=== PATIENT | female | born 1935 | race Caucasian/White ===

== ENCOUNTER 2019-05-23 12:38 | Observation (INO) ==
--- NOTE | 2019-05-23 13:24 | EKG Report ---
Test Performed on : 05/23/2019 12:53:27 PM Test Reason : cp Blood Pressure : / mmHG Vent. Rate : 065 BPM Atrial Rate : 065 BPM P-R Int : 180 ms QRS Dur : 090 ms QT Int : 468 ms P-R-T Axes : 021 002 061 degrees QTc Int : 486 ms Normal sinus rhythm. Low voltage QRS Borderline ECG When compared with ECG of 12-JUN-2018 15:37, Non-specific change in ST segment in Inferior leads Unconfirmed Result
--- NOTE | 2019-05-23 14:24 | PROVIDER DOCUMENTATION ---
HPI-Chest Pain - General Chief Complaint: Chest Pain Stated Complaint: SOB, CP Time Seen by Provider: 05/23/19 13:45 Allergies/Adverse Reactions: Patient Allergies Allergy/AdvReac Type Severity Reaction Status Date / Time aspirin Allergy NAUSEA/VOMI Verified 05/23/19 13:46 TING codeine Allergy RASH Verified 05/23/19 13:46 Sulfa (Sulfonamide Allergy RASH Verified 05/23/19 13:46 Antibiotics) Home Medications: Home Medication List Medication Instructions Recorded Confirmed Last Taken Type Donepezil [Aricept] 10 mg PO DAILY 01/10/16 05/23/19 05/22/19 History Escitalopram [Lexapro] 20 mg PO DAILY 01/10/16 05/23/19 05/22/19 History PRAVAstatin [Pravachol] 40 mg PO DAILY 01/10/16 04/24/18 04/23/18 History 40 mg Pantoprazole Sodium 20 mg PO DAILY 12/31/17 04/24/18 04/23/18 History 20 mg Acetaminophen [Tylenol] 650 mg PO Q8HR PRN 03/13/18 04/24/18 04/23/18 History 650 mg LISINOpril [Prinivil] 2.5 mg PO DAILY 03/13/18 04/24/18 04/23/18 History 2.5 mg Multivitamin [Multiple Vitamins] 1 each PO DAILY 03/13/18 04/24/18 04/23/18 History 1 pill Cholecalciferol (Vitamin D3) 800 unit PO DAILY #90 tablet 05/08/18 Unknown Rx [Vitamin D3] Ergocalciferol (Vitamin D2) 50,000 unit PO Q7D #12 capsule 05/08/18 Unknown Rx [Vitamin D] Iron Carbonyl/Vit C/Vit B12/FA 1 each PO DAILY #30 tablet 05/08/18 Unknown Rx [Icar-C Plus] CefDINIR [Omnicef] 300 mg PO BID #10 cap 06/12/18 Unknown Rx - History of Present Illness-CP Nature of Presenting Problem: patient presented with chest pain started around 11:30AM, substernal area, spastic pain without radiation, no shortness of breath. patient stated pain was subsided now, comfortable, no fever or cough noticed lately. Location: reports: substernal Chest Pain Radiation: reports: no radiation Quality of Pain: reports: burning, sharp Severity in ED: moderate Onset/Duration: gradual, this morning Timing: gone now Context/Activities at Onset: reports: none Modifying Factors: improves with: nothing Associated Symptoms: denies: abdominal pain, back pain, diaphoresis, fatigue, fever/chills, syncope Similar Symptoms Previously?: No Review of Systems - Adult - REVIEW OF SYSTEMS - ADULT Constitutional: denies: fever Eyes: reports: no symptoms reported Ears, Nose, Mouth & Throat: reports: no symptoms reported Cardiovascular: reports: chest pain Respiratory: reports: no symptoms reported Gastrointestinal: reports: no symptoms reported Genitourinary: reports: no symptoms reported Musculoskeletal: reports: no symptoms reported Integumentary: reports: no symptoms reported Neurological: reports: no symptoms reported Psychiatric: reports: no symptoms reported Endocrine: reports: no symptoms reported Hematologic/Lymphatic: reports: no symptoms reported Allergic/Immunologic: reports: no symptoms reported Past History - Adult - PAST MEDICAL HISTORY-ADULT Review of Records: reports: Nursing Assessment Review Major Childhood Illnesses: reports: denies history Cardiovascular: reports: HTN, hyperlipidemia Respiratory: reports: denies history Gastrointestinal: reports: denies history Obstetrical/Gynecological: reports: denies history Genitourinary: reports: denies history Musculoskeletal: reports: denies history Neurological: reports: CVA, dementia, TIA Psychiatric: reports: denies history Endocrine/Immune: reports: lupus, RA Other Conditions: reports: denies history, other cancer (melanoma), other (lupus) - PRIOR SURGERIES/PROCEDURES Surgical/Procedure History: reports: cholecystectomy, BTL, other (melanoma removed left eye, graft) - IMMUNIZATION STATUS Childhood Immunizations: UTD, See Nurse Assessment Flu Vaccine: See Nurse Assessment - FAMILY HISTORY Family History: reviewed, not pertinent Physical Exam-General - PHYSICAL EXAM-ADULT Initial Vital Signs Reviewed: Yes - CONSTITUTIONAL General Appearance: alert, no apparent distress - EYES Eyes: pink conjunctivae, other (hazy cornea of the left eye) - HEAD, EARS, NOSE, MOUTH & THROAT HENMT: normocephalic/atraumatic, normal ENT inspection - NECK Neck: non-tender, supple - RESPIRATORY Respiratory: chest non-tender, lungs clear - CARDIOVASCULAR Cardiovascular: normal peripheral pulses, no edema, no JVD - GASTROINTESTINAL (ABDOMEN) Abdominal Exam: normal bowel sounds, soft - LYMPHATIC Lymphatic: no adenopathy - MUSCULOSKELETAL Back Exam: normal inspection, no CVA tenderness, no vertebral tenderness Extremity: normal range of motion - SKIN Integumentary: normal color, normal turgor, warm/dry - NEUROLOGIC Neurologic: grossly normal, no motor/sensory deficits - PSYCHIATRIC Psych/Mental Status: normal mood/affect - HEART Score HEART Score: History: Slightly Suspicious HEART Score: ECG: Non-Specific Repolarization Disturbance/LBBB/PM HEART Score: Age: > or = 65 Years HEART Score: Risk Factors for Atherosclerotic Disease: 1 or 2 Risk Factors HEART Score: Troponin: < or = Normal Limit Total HEART Score:: 4 Progress - PLAN OF CARE/RESULTS Progress/Plan/Lab Results: Vital Signs - 8 hr 05/23/19 13:22 05/23/19 13:33 05/23/19 14:30 Temperature 97.7 F 98.1 F Pulse Rate 65 66 60 Respiratory Rate 18 18 18 Blood Pressure 128/93 128/93 128/93 O2 Sat by Pulse Oximetry 100 100 100 05/23/19 14:32 05/23/19 15:02 05/23/19 15:32 Temperature Pulse Rate 67 65 62 Respiratory Rate 14 22 17 Blood Pressure 146/67 136/64 140/65 O2 Sat by Pulse Oximetry 100 100 99 05/23/19 15:34 Temperature Pulse Rate 64 Respiratory Rate 15 Blood Pressure 140/65 O2 Sat by Pulse Oximetry 100 Laboratory Results - last 24 hr 05/23/19 05/23/19 05/23/19 14:06 14:06 14:06 WBC 8.81 RBC 4.70 Hgb 13.5 Hct 41.1 MCV 87.4 MCH 28.7 MCHC 32.8 L RDW Std Deviation 13.7 Plt Count 286 MPV 9.7 Immature Gran % (Auto) 0.3 Neut % (Auto) 76.9 H Lymph % (Auto) 16.2 L [place] % (Auto) 5.1 Eos % (Auto) 1.2 Baso % (Auto) 0.3 Immature Gran # (Auto) 0.03 Neut # (Auto) 6.76 H Lymph # (Auto) 1.43 [place] # (Auto) 0.45 Eos # (Auto) 0.11 Baso # (Auto) 0.03 Sodium 140 Potassium 4.7 Chloride 105 Carbon Dioxide 24 L Anion Gap 11 BUN 25 H Creatinine 1.4 H Estimated GFR/1.73 m2 36 BUN/Creatinine Ratio 18 Glucose 106 H Calculated Osmolality 284 Calcium 9.1 Total Bilirubin 0.41 AST 29 ALT 9 L Alkaline Phosphatase 75 Creatine Kinase 16 L Troponin T High Sens 9 Total Protein 6.1 L Albumin 3.8 Globulin 2.3 Albumin/Globulin Ratio 1.7 Amylase 106 Lipase 56 05/23/19 16:36 WBC RBC Hgb Hct MCV MCH MCHC RDW Std Deviation Plt Count MPV Immature Gran % (Auto) Neut % (Auto) Lymph % (Auto) [place] % (Auto) Eos % (Auto) Baso % (Auto) Immature Gran # (Auto) Neut # (Auto) Lymph # (Auto) [place] # (Auto) Eos # (Auto) Baso # (Auto) Sodium Potassium Chloride Carbon Dioxide Anion Gap BUN Creatinine Estimated GFR/1.73 m2 BUN/Creatinine Ratio Glucose Calculated Osmolality Calcium Total Bilirubin AST ALT Alkaline Phosphatase Creatine Kinase Troponin T High Sens 11 Total Protein Albumin Globulin Albumin/Globulin Ratio Amylase Lipase Orders Category Date Time Status Saline Loc DIRECTED Care 05/23/19 14:00 Active NPO Diet 05/23/19 14:00 Active CHEST-1 VIEW [RAD] Stat Exams 05/23/19 15:[address] HEAD W/O CONTRAST [CT] Stat Exams 05/23/19 17:30 Ordered AMYLASE [CHEM] Stat Lab 05/23/19 14:06 Completed CBC WITH ELECTRONIC DIFF [HEME] Stat Lab 05/23/19 14:06 Completed CK PROFILE [SP CHEM] Stat Lab 05/23/19 14:06 Completed COMPREHENSIVE METABOLIC PANEL [CHEM] Stat Lab 05/23/19 14:06 Completed LIPASE [CHEM] Stat Lab 05/23/19 14:06 Completed TROPONIN T HIGH SENSITIVITY Stat Lab 05/23/19 14:06 Completed TROPONIN T HIGH SENSITIVITY Stat Lab 05/23/19 16:36 Completed URINALYSIS W/POSS RFLX CULT [URINALYSIS] Stat Lab 05/23/19 17:33 Uncollected 0.9% Sodium Chloride Inj [Ns] 1,000 ml Med 05/23/19 17:31 Active IV 999 mls/hr EKG [EKG] Stat Ther 05/23/19 13:12 Draft Result Diagrams: 05/23/19 14:06 05/23/19 14:06 - REASSESSMENT Reassessment #1 Time Reassessed: 17:25 Status: improving (family concerned about the chest pain might happen again and reported seizure activity after the chest pain) - EKG 1 Time of EKG reading by physician:: 12:53 EKG Read and Signed by:: Ginger Christiansen EKG Interpretation (*Must complete 3 of following elements*): Normal (borderline) Rate: 65 Rhythm: nsr [place]: normal QRS: other (low voltage qrs) [place] Interval: normal ST Wave: normal - CONSULTS/PCP/HOSPITALIST Notification #1 *Consult/PCP/Hospitalist*: Dr Smith Time Discussed: 17:43 Consult Disposition: Will see in ED Departure - Departure Date of Disposition Decision: 05/23/19 Time of Disposition Decision: 17:42 DIAGNOSIS: Chest pain Qualifiers: Chest pain type: unspecified Qualified Code(s): R07.9 - Chest pain, unspecified Disposition: ADMITTED INPATIENT 09 Certified Medical Emergency: Emergent Condition: Good Referrals and Follow-Ups: Kimi Suarez MD [Primary Care Provider] - - Critical Care Note This patient required my direct & personal management of CC.: No Attestation - Physician/ ANDRE Attestation Patient care was provided by Advanced Practice Provider:: No The physician spent face to face time with patient:: Yes Advanced Practice Provider documentation review:: Supervising physician onsite and consulted in the evaluation and care of this patient. The physician did have a face to face encounter with the patient.
[2019-05-23 14:31] LABS: BASO# 0.03 X1000 (0.0-0.2); BASO% 0.3 % (0.0-0.8); EOS# 0.11 X1000 (0.0-0.7); EOS% 1.2 % (0.0-10.0); HEMATOCRIT 41.1 % (37.0-47.0); HEMOGLOBIN 13.5 g/dL (12.0-16.0); IMM GRAN# 0.03 X1000 (0.0-0.04); IMM GRAN% 0.3 % (0.0-0.5); LYMPH# 1.43 X1000 (1.2-3.4); LYMPH% 16.2 % (20.5-51.1); MCH 28.7 PG (27-31); MCHC 32.8 g/dL (33-37); MCV 87.4 FL (81-99); MONO# 0.45 X1000 (0.11-0.59); MONO% 5.1 % (1.7-9.3); MPV 9.7 FL (7.4-10.4); NEUT# 6.76 X1000 (1.4-6.5); NEUT% 76.9 % (42.2-75.2); PLT 286 X1000 (130-400); RDW 13.7 % (11.5-14.5); WBC 8.81 X1000 (4.8-10.8)
[2019-05-23 15:14] LABS: ALB/GLOB RATIO 1.7; ALBUMIN 3.8 g/dL (3.5-5.0); CALCIUM 9.1 mg/dL (8.8-10.2); CREATININE 1.4 mg/dL (0.5-0.9); POTASSIUM 4.7 mmol/L (3.5-5.1); TOTAL BILIRUBIN 0.41 mg/dL (0.20-1.00); TOTAL PROTEIN 6.1 g/dL (6.3-8.3)
--- NOTE | 2019-05-23 15:56 | Diag Imaging Result Doc PS360 ---
EXAM: CHEST-1 VIEW 05/23/2019 HISTORY: chest pain TECHNIQUE: Erect AP portable at 1537 COMMENT: There is some retrocardiac opacity in the left lower lobe which was not apparently present on 06/12/2018. IMPRESSION: Atelectasis versus pneumonia left lower lobe. Electronically signed by Beto Doss 05/23/2019 3:54 PM
[2019-05-23] MEDS ORDERED: NS 1,000 ML IV ONE (17:31)
--- NOTE | 2019-05-23 18:05 | Diag Imaging Result Doc PS360 ---
EXAM: CT HEAD W/O CONTRAST 05/23/2019 HISTORY: seizure like activity TECHNIQUE: This exam was performed using automated exposure control, adjustment of mA or kV according to patient size, and/or use of iterative reconstruction technique. COMMENT: There are calcifications present in the internal carotid arteries bilaterally. There is patchy abnormal lucencies in the white matter both hemispheres. There is a small lacunar lucency in the anterior limb of the internal capsule on the right. The appearance of the brain has not changed significantly since the previous examination of 06/12/2018. There is no evidence of bleed or abnormal extra-axial fluid collection. There is mucosal thickening in the right maxillary sinus and right sphenoid sinus. The calvarium is intact. IMPRESSION: Chronic ischemic microvascular white matter disease. Chronic sinus changes. Electronically signed by Beto Doss 05/23/2019 6:02 PM
[2019-05-23 18:15] LABS: URINE SOURCE CLEAN CATCH
[2019-05-23 18:20] LABS: BILIRUBIN URINE NEGATIVE (NEGATIVE); BLOOD URINE NEGATIVE (NEGATIVE); COLOR YELLOW; GLUCOSE URINE NEGATIVE (NEGATIVE); KETONE URINE NEGATIVE (NEGATIVE); LEUKOCYTES URINE NEGATIVE (NEGATIVE); NITRITE URINE NEGATIVE (NEGATIVE); PROTEIN URINE NEGATIVE (NEGATIVE); SP GRAVITY URINE 1.018; TURBIDITY URINE CLEAR (CLEAR); UROBILINOGEN URINE NORMAL (NORMAL)
[2019-05-23 18:31] LABS: UR EPITHELIAL CELLS <10 /HPF (<10); URINE BACTERIA NEGATIVE /HPF; URINE RBC <10 /HPF (<10); URINE WBC <10 /HPF (<10)
[2019-05-23 18:36] LABS: URINE CASTS NONE SEEN; URINE CRYSTALS NONE SEEN; URINE YEAST NONE SEEN
[2019-05-23] MEDS ORDERED: TYLENOL PO PRN (18:58)
[2019-05-23] MEDS ORDERED: NITROGLYCERIN SL PRN (19:09)
[2019-05-23] MEDS ORDERED: MORPHINE IV PRN (19:10)
--- NOTE | 2019-05-23 23:22 | HISTORY AND PHYSICAL ---
CHIEF COMPLAINT: Chest pain and shortness of breath. PRESENT ILLNESS: This is one of several [facility] admissions for this 83-year-old, white female patient of Dr. Suarez who developed some substernal chest pain this afternoon and a syncopal episode with possible seizure activity for a few minutes at home and loss of consciousness. She presented to the emergency room where she was evaluated for chest pain. CT scan of her head was done revealing some chronic microvascular changes, unchanged from 1 year ago. After studies including 2 troponin levels were done and were normal, intention was to send her home, but she had a recurrent episode of chest pain. There was no change in blood pressure, heart rate or respirations. The family was insistent on her staying primarily because of the seizure-like episode but also because of chest pain. There is no history of heart disease. She has not seen a trolley cleaner. She is admitted to rule out cardiovascular event. PAST MEDICAL HISTORY: Surgeries include cholecystectomy and hysterectomy. She has had several surgeries for melanoma on her left eyelid. Her dermatology surgeon in [place] has retired, and she will need to find a new physician to manage her skin cancer. PRESENT MEDICATIONS: Tylenol 650 mg q.8 hours p.r.n., cefdinir 300 mg b.i.d., vitamin D3 400 units 1 daily, donepezil 10 mg 1 daily, escitalopram 20 mg 1 daily, iron with vitamin C 1 daily, lisinopril 5 mg 1 daily, multivitamin once daily, pantoprazole 20 mg 1 daily, and pravastatin 40 mg 1 daily. ALLERGIES: Aspirin, codeine and sulfa. FAMILY HISTORY: Unremarkable. No history of coronary artery disease, heart disease, or cancer. SOCIAL HISTORY: Lives alone. There is no history of smoking or alcohol usage. PHYSICAL EXAMINATION: VITAL SIGNS: Temperature 98.1 degrees, heart rate 64, respirations 15, blood pressure 140/65, O2 saturation on room air 100%. GENERAL: Patient is a well-developed, well-nourished, elderly white female in no apparent distress. There is deformity of her left eyelid due to previous surgeries. Pupils are equal and reactive. Pharynx benign with no erythema or exudate. NECK: Supple with no mass or lymphadenopathy. There is no carotid bruit. HEART: Regular in rate and rhythm with no murmur, rub or gallop. LUNGS: Clear with no rales or rhonchi. ABDOMEN: Soft with no mass, tenderness, or organomegaly. EXTREMITIES: No cyanosis, clubbing, or edema. RECTAL AND GENITALIA: Deferred. NEUROLOGICAL: Grossly intact with no focal weakness. CHEST: There is some mild left chest wall tenderness to palpation in the costochondral areas. IMPRESSION: Chest pain, atypical, probable left costochondritis, syncopal episode, undetermined etiology, possible seizure. PLAN: Admit for observation and further evaluation. cc: MD Ld Judge MD
[2019-05-24] MEDS: NS 1,000 ML IV SCH ×2 (00:15→13:54)
[2019-05-24] MEDS ORDERED: PRILOSEC PO SCH (07:00)
--- NOTE | 2019-05-24 08:53 | EKG Report ---
Test Performed on : 05/24/2019 07:04:04 AM Test Reason : chest pain Blood Pressure : / mmHG Vent. Rate : 064 BPM Atrial Rate : 064 BPM P-R Int : 192 ms QRS Dur : 082 ms QT Int : 460 ms P-R-T Axes : 033 014 074 degrees QTc Int : 474 ms Normal sinus rhythm. Normal ECG When compared with ECG of 23-MAY-2019 12:53, (Unconfirmed) No significant change was found Confirmed by Anatoly WINTER, Scott Clark ([id number]) on 05/25/2019 10:26:14 PM
[2019-05-24] MEDS ORDERED: PRINIVIL PO SCH (09:00)
[2019-05-24] MEDS ORDERED: ICAR-C PLUS PO SCH (09:00)
[2019-05-24] MEDS ORDERED: LEXAPRO PO SCH (09:00)
[2019-05-24] MEDS ORDERED: PRAVACHOL PO SCH (09:00)
[2019-05-24] MEDS ORDERED: VITAMIN D PO SCH (09:00)
[2019-05-24] MEDS ORDERED: ARICEPT PO SCH (09:00)
--- NOTE | 2019-05-24 13:24 | PROGRESS NOTE ---
DATE: 05/24/2019 VITAL SIGNS: Temperature 97.9 degrees, heart rate 61, respiration 18, blood pressure 123/58, O2 saturation on room air 98%. The patient is feeling well this morning. She has had no further episodes of chest pain or syncope. EKG was ordered this morning and is not on the record. Carotid ultrasound was ordered and report is pending. PLAN: Keep until this afternoon and if no further problems, consider discharge. cc: MD Ld Judge MD
[2019-05-24 15:37] VITALS: BP 121/55
--- NOTE | 2019-05-24 20:36 | DISCHARGE SUMMARY ---
ADMISSION DATE: 05/23/2019 DISCHARGE DATE: 05/24/2019 FINAL DIAGNOSES: 1. Atypical chest pain. 2. Costochondritis. 3. Syncopal episode of undetermined etiology. 4. Dementia. 5. Depression. 6. Hypertension. 7. Dyspepsia. 8. Hypercholesterolemia. DISCHARGE MEDICATIONS: Usual medications at home. INITIAL LABORATORY: Hemoglobin 13.5, hematocrit 41.1, white blood count 8800 with normal differential. Sodium 140, potassium 4.7, BUN 25, creatinine 1.4. CK 16, troponin 9, total protein 6.1, amylase 106, lipase 56. HOSPITAL COURSE: Her chest pain was present in the emergency room, but resolved shortly after arriving on the floor. Telemetry remained stable. She had no further syncopal episodes. There is history of dementia and she became confused today removing her IV and telemetry. Carotid ultrasound was done and results are pending. Subsequent troponins were normal. EKG today was unchanged and normal. She is discharged home on her usual medicine to see Dr. Suarez by the end of this week for followup. He will discuss results of her carotid ultrasound. cc: MD Ld Judge MD
--- NOTE | 2019-05-27 08:33 | Carotid Study ---
DATE: 05/24/2019 REQUESTING PHYSICIAN: Dr. Smith. ASSOCIATE PRODUCER: Morales. INDICATIONS: Syncope. EQUIPMENT: [employer] Vivid E9 ultrasound system with a 9 L-D transducer. FINDINGS: Complete diagram of images can be seen and scanned in the patient's medical record. The peak systolic velocity noted on the right side in the mid internal carotid artery is noted to be 83. The peak systolic velocity noted on the left side is located at the distal internal carotid artery and is noted to be 56. The calculated internal common ratio on the right is 1.23 and the left 0.73. Calculated stenosis on the right 0 to 39 percent, left 0 to 39 percent. There appears to be some atherosclerosis, but it is only minimal. This does not produce any hemodynamically significant flow-limiting stenosis. Both vertebral arteries appear to be antegrade flow. INTERPRETATION: By strict velocity criteria, no hemodynamically significant flow-limiting stenosis noted. cc: MD Bobby Peñaloza MD Jagan Reddy, MD MTDD
== END 2019-05-24 17:34 | disposition home or self-care (01) ==
LOC: SUPCPDRO → ED 12:38 → 2N 22:13 → INTOOBSV 22:13
PROVIDERS: ADMIT Internal Medicine; ATTEND Internal Medicine